=== PATIENT | female | born 1985 | race Caucasian/White ===

== ENCOUNTER 2016-10-25 13:00 | Inpatient (IN) | payer OTHER ==
--- NOTE | ~2016-10-25 | PN ---
Unit #: [id number] #: [id number] Patient: KIESHA READ [id number] [facility] [address] [place] [address] [id number] I MR#: [id number] NAME: KIESHA READ. ROOM: P211 Age: 31 Sex: F Admission Date: 10/25/2016 : 1985 Attending Physician: John Whitmore M.D. Admitting Physician: John Whitmore M.D. Primary Care Physician: Madison Goetz M.D. [facility] PROGRESS NOTES DATE 10/27/2016 DISCUSSION Ms. Kiesha Read is a 31-year-old female seen on 10/27/2016. Patient interviewed. Chart reviewed. Obtained information from nursing staff. Patient was compliant and cooperative. Mood sad, dysphoric, flat affect but reports making progress. No side effects from medication. Currently on detox protocol. Complete review of system unremarkable. MENTAL STATUS EXAMINATION General appearance, patient dressed casually. Attention span, concentration fair. Oriented in place and person. Mood and affect was sad, dysphoric. Speech monotone. Thought process concrete. Patient denied any thoughts of harming self or others or any psychotic symptoms. Recent and remote memory poor. Insight and judgement poor. DIAGNOSIS 1. Mood disorder NOS. 2. Polysubstance abuse. ASSESSMENT/PLAN Advised to continue with current medication and therapeutic protocol. Will monitor response to medication and make further adjustment of medication. Dictated by... Campbell Foreman/barbara TD: 10/28/2016 20:06 JOB #: [id number] Unit #: [id number] #: [id number] Patient: KIESHA READ [facility] PROGRESS NOTES X John Whitmore MD PROGRESS NOTE
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
--- NOTE | ~2016-10-25 | DS ---
Unit #: [id number] #: [id number] Patient: SAÚL DIAZ [id number] [facility] [place] [address] [id number] MR#: [id number] NAME: SAÚL DIAZ. ROOM: [facility] Age: 31 Sex: F Admission Date: 10/25/2016 : 1985 Discharge Date: 10/28/2016 Attending Physician: John Whitmore M.D. Primary Care Physician: Madison Goetz M.D. DISCHARGE SUMMARY REASON FOR ADMISSION Detox, depression. DIAGNOSTIC STUDIES LABORATORY RESULTS: Remarkable for glucose 241, chloride 97, alkaline phosphatase 96. Urine drug screen positive for marijuana and opioid. HOSPITAL COURSE The patient was admitted to inpatient unit on 10/25/2016 and discharged on 10/28/2016. The patient was treated on the inpatient unit with group therapy, individual therapy, medication management, chemical dependency group, detox monitoring, detox protocol. The patient responded well with the above modalities of treatment. Subsequently, the patient was discharged with a plan to follow up in outpatient program. DISCHARGE MEDICATIONS None. DISCHARGE DIAGNOSES Psychiatric: Opioid use disorder, severe, F11.20; cannabis abuse, moderate, F12.20; sedative hypnotic use disorder, severe, F13.20; mood disorder, not otherwise specified, F32.9. Secondary diagnosis: Deferred. Medical diagnosis: None. Stressors: Psychosocial stressors. DISCHARGE INSTRUCTIONS The patient to follow up in outpatient clinic as per social security benefits interviewer. CONDITION ON DISCHARGE The patient was pleasant and cooperative, denied any psychotic symptom or any suicidal ideation. PROGNOSIS Guarded. DIET AND ACTIVITY As tolerated. Unit #: [id number] #: [id number] Patient: SAÚL DIAZ Dictated by... Campbell ForemanC/la TD: 10/29/2016 06:10 JOB #: [id number] DISCHARGE SUMMARY X John Whitmore MD X DISCHARGE SUMMARY
--- NOTE | ~2016-10-25 | PA ---
Unit #: [id number] #: [id number] Patient: KIESHA READ [id number] [facility] [address] [place] [address] [id number] MR#: [id number] NAME: KIESHA READ ROOM: [facility] Age: 31 Sex: F Admission Date: 10/25/2016 : 1985 Date of Assessment: 10/26/2016 Attending Physician: John Whitmore M.D. Admitting Physician: John Whitmore M.D. Primary Care Physician: Madison Goetz M.D. PSYCHIATRIC ASSESSMENT INFORMANTS The patient's reliability, fair; chart reliability, good. CHIEF COMPLAINT Detox from opioid and Xanax. HISTORY OF PRESENT ILLNESS Kiesha Read is a 31-year-old female, seen due to above-mentioned complaint. The patient reported history of previous treatment inpatient at [facility]cial [facility], suicidal ideation, currently living with a friend, presented with detox from opioid and Xanax. The patient reported having a 5-year history of heroin and 3-history with Xanax. The patient reported at least using half to one and half g of heroin and 3 bars of Xanax. The patient reported last use yesterday. The patient reported currently detoxing from symptoms such as stomach cramping, low energy, irritability, runny nose, restlessness, low appetite. The patient reported longest period of sobriety was 56 days. The patient reported losing her child, unable to maintain sobriety. The patient reported also using marijuana, but denied any suicidal or homicidal ideation or psychotic symptom. PAST PSYCHIATRIC HISTORY Remarkable for history of inpatient treatment in the past as mentioned above. FAMILY HISTORY AND SOCIAL HISTORY Family history is remarkable for history of substance abuse on both sides of the family. No history of any abuse. MEDICAL HISTORY Unremarkable for any chronic medical illness. Musculoskeletal; muscle strength and tone, no atrophy or abnormal movement. Gait normal. MEDICATION HISTORY None. ALLERGIES No known drug allergies. SUBSTANCE ABUSE HISTORY The patient reported tobacco use, age of onset 19; marijuana, age of onset 20; opioid, age of onset 26; amphetamine, age of onset 22; and prescription medication, age of onset 28. The patient reported history of IV drug use. History of withdrawal symptoms such as muscle cramping, Unit #: [id number] #: [id number] Patient: KIESHA READ abdominal cramping, diarrhea, depressed mood, irritability, poor concentration, restlessness, sleep problems, tremors. REVIEW OF SYSTEMS HEENT: Eyes, clear. Ears, nose, mouth, and throat; clear. CARDIOVASCULAR: Unremarkable. RESPIRATORY: Unremarkable. GI: Unremarkable. : Unremarkable. SKIN: Unremarkable. LYMPH NODE: Unremarkable. NEUROLOGIC: Unremarkable. ENDOCRINE: Unremarkable. HEMATOLOGIC: Unremarkable. ALLERGIC/IMMUNOLOGIC: Unremarkable. MUSCULOSKELETAL: Muscle strength and tone, no atrophy or abnormal movement. Gait normal except as mentioned above. MENTAL STATUS EXAMINATION CONSTITUTIONAL: Measurement of vital signs; temperature 97.3, pulse 91, respirations 16, blood pressure 108/71. Height 5 feet 2 inches, weight 125 pounds. GENERAL APPEARANCE: The patient dressed casually. The patient did not show any facial deformity. MUSCULOSKELETAL: Please see above. PSYCHIATRIC EXAMINATION Description of speech; regular rate, normal volume. Description of thought process, goal directed. Description of association, intact. Description of abnormal psychotic thinking; the patient denied any hallucination or delusions, but mood lability and substance abuse. Description of the patient's judgment; concerning everyday activity, poor. Social situation, poor. Concerning psychiatric condition, poor. Complete mental status examination; oriented in time, place, and person. Recent and remote memory, fair. Attention span and concentration, fair. Language, able to name object and repeat phrases. Fund of knowledge, aware of current event, passive vocabulary intact. Mood and affect, sad and dysphoric. Insight and judgment, fair to poor. ASSETS AND LIABILITIES Assets; the patient articulate, able to take care of her ADL. Liability; history of substance abuse and depression. ADMITTING DIAGNOSES Psychiatric: 1. Opioid use disorder, severe, F11.20. 2. Sedative hypnotic use disorder, severe, F13.20. 3. Mood disorder, not otherwise specified, F32.9. Secondary diagnosis: Deferred. Medical diagnosis: None. Stressors: Psychosocial stressors. PSYCHIATRIC PLAN AND TREATMENT GOAL 1. Advised to admit the patient on the inpatient unit. Provide safe, supportive, and structured environment. Unit #: [id number] #: [id number] Patient: KIESHA READ 2. Ordered labs; CBC, CMP, UA, UDS, test. 3. The patient was started on detox protocol, detox monitoring, COWS protocol. If needed, consider further adjustment of medication. 4. The patient to attend all the programing on the inpatient unit including group therapy, individual therapy, family session. 5. Treatment goal to attain euthymic mood, gain insight into her problem, and learn coping skills. DISCHARGE PLAN Plan to stabilize the patient and consider followup in outpatient program. ESTIMATED LENGTH OF STAY 5 days. Dictated by... John Whitmore M.D. IAM/la TD: 10/27/2016 08:04 JOB #: [id number] PSYCHIATRIC ASSESSMENT X John Whitmore MD PSYCHIATRIC ASSESSMENT
[2016-10-26 09:37] LABS: BASOPHIL# 0.1 X10e3 (0-0.3); BASOPHIL% 0.9 % (0-2.5); EOSINOPHIL# 0.1 X10e3 (0-0.7); EOSINOPHIL% 1.3 % (0.0-7.0); LYMPHOCYTE# 1.6 X10e3 (1.0-3.5); MEAN CELL VOLUME 83.3 FL (83-96); MEAN CORPUSCULAR HEMOGLOBIN 27.7 PG (28-34); MEAN CORPUSCULAR HGB CONC 33.3 g/dL (30-36); MEAN PLATELET VOLUME 8.1 FL (6.5-11.5); MONOCYTE# 0.5 X10e3 (0-1.0); MONOCYTE% 6.3 % (3.0-12.0); NEUTROPHIL# 5.9 X10e3 (1.5-7.1); NEUTROPHIL% 72.5 % (40-75); PLATELET COUNT 384 X10e3 (140-420); RED BLOOD COUNT 4.32 X10e (3.90-5.30); RED CELL DISTRIBUTION WIDTH 15.9 % (11.0-15.5); WHITE BLOOD COUNT 8.2 X10e3 (4.0-10.5)
[2016-10-26 09:47] LABS: DIFF IND NO
[2016-10-26 10:00] LABS: ALBUMIN SERUM 4.1 g/dL (3.5-5.0); ALKALINE PHOSPHATASE 96 U/L (32-92); ALT (SGPT) 18 U/L (10-40); AST (SGOT) 27 U/L (10-42); BILIRUBIN,TOTAL 0.5 mg/dL (0.2-2.0); BLOOD UREA NITROGEN 15 mg/dL (9-23); BUN/CREATININE RATIO 18.75; CALCIUM SERUM 9.3 mg/dL (8.4-10.2); CARBON DIOXIDE 30 mmol/L (22-31); CHLORIDE 97 mmol/L (100-111); CREATININE SERUM 0.8 mg/dL (0.6-1.4); GLOM FILT RATE Estimated ABOVE60 mL/min (>60); GLUCOSE FASTING 241 mg/dL (70-110); POTASSIUM 3.7 mmol/L (3.5-5.1); PROTEIN TOTAL SERUM 7.8 g/dL (6.0-8.3); SODIUM 138 mmol/L (135-145)
[2016-10-26 10:02] LABS: THYROID STIMULATING HORMONE 0.15 uIU/ml (0.34-5.60)
[2016-10-26 10:12] LABS: FREE THYROXIN (T4) 0.83 ng/dL (0.58-1.64)
[2016-10-27 10:40] LABS: U HYALINE CASTS AUWI 0-2 /[LPF]; URBCS1 AUWI 0-2 /[HPF] (0-2); URINE APPEARANCE CLOUDY; URINE BACTERIA AUWI 2+ (NEGATIVE); URINE BILIRUBIN NEG (NEG); URINE BLOOD NEG (NEG); URINE COLOR YELLOW; URINE GLUCOSE NEG (NEG); URINE KETONE NEG (NEG); URINE LEUKOCYTE ESTERASE 1+ (NEG); URINE NITRATE NEG (NEG); URINE PROTEIN NEG (NEG); URINE SPECIFIC GRAVITY 1.008 (1.003-1.035); URINE SQUAMOUS EPITHELIAL CELL MOD /[HPF]; URINE UROBILINOGEN 0.2 MG/DL (NEG)
[2016-10-27 11:11] LABS: AMPHETAMINE NEG (NEG); BARBITURATES NEG (NEG); BENZODIAZEPINES NEG (NEG); COCAINE NEG (NEG); MARIJUANA POS (NEG); OPIATES POS (NEG); TRICYCLIC ANTIDEPRESSANTS NEG (NEG); U METHADONE NEG (NEG)
== END 2016-10-28 10:12 | DRG 897 ==
LOC: P2S 13:00
PROVIDERS: Psychiatry & Neurology Psychiatry
PROC: HZ2ZZZZ Detoxification Services for Substance Abuse Treatment (ICD-10-PCS; principal; 2016-10-25)
DX: F11.20 Opioid dependence, uncomplicated (principal); F13.20 Sedative, hypnotic or anxiolytic dependence, uncomplicated; F39 Unspecified mood [affective] disorder; F17.210 Nicotine dependence, cigarettes, uncomplicated
CPT/HCPCS: 80053; 80307; 81003; 84439; 84443; 84703; 85025; 86592